=== PATIENT | male | born 1985 | race Caucasian/White ===

== ENCOUNTER 2017-12-07 04:53 | Emergency (ER) | payer OTHER ==
[2017-12-07] MEDS ORDERED: KETOROLAC 60 MG/2 ML VIAL IM STA (05:25)
--- NOTE | 2017-12-07 05:48 | XR ---
EXAM: XR Left Knee, 3 views CLINICAL HISTORY: ITS.REASON XR Reason: Pain TECHNIQUE: Three views of the left knee. COMPARISON: No relevant prior studies available. FINDINGS: Bones/joints: Unremarkable. No acute fracture. No dislocation. Soft tissues: Unremarkable. IMPRESSION: Normal left knee x-rays.
--- NOTE | 2017-12-07 05:52 | ED ---
General Adult HPI - General Chief complaint: Extremity Injury, Lower Stated complaint: [facility]-knee injury Time Seen by Provider: 12/07/17 05:06 Source: patient, RN notes reviewed, old records reviewed Mode of arrival: ambulatory Limitations: no limitations - History of Present Illness Initial comments: This is a 32-year-old male to the ER prevention of left knee pain. Patient states he has history of left patellar dislocation. Knee injury. Patient feels like similar symptoms happen prior to arrival today. Patient did finish his work and comes to the ER for evaluation of continued pain and swelling in that left knee. No other injury no specific trauma - Related Data Allergies Allergy/AdvReac Type Severity Reaction Status Date / Time No Known Allergies Allergy Verified 12/07/17 05:01 Review of Systems ROS Statement: Those systems with pertinent positive or pertinent negative responses have been documented in the HPI. ROS Other: All systems not noted in ROS Statement are negative. Past Medical History Past Medical History: No Reported History History of Any Multi-Drug Resistant Organisms: None Reported Past Surgical History: Adenoidectomy Past Psychological History: No Psychological Hx Reported Smoking Status: Current every day smoker Past Alcohol Use History: Occasional Past Drug Use History: None Reported General Exam Limitations: no limitations General appearance: alert, in no apparent distress Head exam: Present: atraumatic, normocephalic, normal inspection Eye exam: Present: normal appearance, PERRL, EOMI. Absent: scleral icterus, conjunctival injection, periorbital swelling ENT exam: Present: normal exam, mucous membranes moist Neck exam: Present: normal inspection. Absent: tenderness, meningismus, lymphadenopathy Respiratory exam: Present: normal lung sounds bilaterally. Absent: respiratory distress, wheezes, rales, rhonchi, stridor Cardiovascular Exam: Present: regular rate, normal rhythm, normal heart sounds. Absent: systolic murmur, diastolic murmur, rubs, gallop, clicks GI/Abdominal exam: Present: soft, normal bowel sounds. Absent: distended, tenderness, guarding, rebound, rigid Extremities exam: Present: normal inspection, full ROM, normal capillary refill , other (Edema, bruise). Absent: tenderness, pedal edema, joint swelling, calf tenderness Back exam: Present: normal inspection Neurological exam: Present: alert, oriented X3, CN II-XII intact Psychiatric exam: Present: normal affect, normal mood Skin exam: Present: warm, dry, intact, normal color. Absent: rash Course Vital Signs 12/07/17 12/07/17 04:58 06:10 Temperature 99 F 98.1 F Pulse Rate 100 85 Respiratory 16 18 Rate Blood Pressure 129/73 139/85 O2 Sat by Pulse 99 98 Oximetry - Reevaluation(s) Reevaluation #1: Patient is not requiring anything for pain control Medical Decision Making - Medical Decision Making 32 male the ER with unspecified knee injury. X-ray negative. Patient will follow-up with orthopedics for further evaluation and management, knee immobilizer is placed - Radiology Data Radiology results: report reviewed (X-ray left knee is negative for traumatic injury), image reviewed Disposition Clinical Impression: Left knee dislocation, Strain of left knee Disposition: HOME SELF-CARE Condition: Good Instructions: Knee Sprain (ED), Knee Pain (ED), Knee Immobilizer (ED) Referrals: Kenny Jovel MD [STAFF PHYSICIAN] - 1-2 days
[2017-12-07 06:11] VITALS: BP 139/85; PULSE 85; RESP 18; TEMP 98.1
== END 2017-12-07 06:13 | disposition home or self-care (01) ==
LOC: EC 04:53
DX: S83.005A Unspecified dislocation of left patella, initial encounter (principal); F17.200 Nicotine dependence, unspecified, uncomplicated; X58.XXXA Exposure to other specified factors, initial encounter; Y93.89 Activity, other specified; Y92.69 Other specified industrial and construction area as the place of occurrence of the external cause; Y99.0 Civilian activity done for income or pay
CPT/HCPCS: 99284; 96372; 73562; L1830; J1885

== ENCOUNTER 2017-12-21 11:02 | Observation (INO) | payer OTHER ==
[2017-12-19 09:21] VITALS: BMI 35.7
[~2017-12-21 11:02] MED LIST: DEXAMETHASONE SOD PHOSPHATE 10 MG/ML 1 ML VIAL IV ONE; MIDAZOLAM 2 MG/2 ML VIAL IV PRN; MORPHINE SULFATE 4 MG/ML SYRINGE IV PRN; ONDANSETRON 4 MG/2 ML VIAL IVP ONE; Pre Op ABX Message 1 EACH MISC MISCELLANE ONE; SCOPOLAMINE 1.5MG/72HR PATCH TRANSDERM ONE
[2017-12-21] MEDS ORDERED: LIDOCAINE 1% 20 ML VIAL (10MG/ML) FOR IV START INTRADERMA ONE (12:06)
[2017-12-21] MEDS: LACTATED RINGERS 1,000 ML IV SCH ×4 (12:06→21:39)
[2017-12-21] MEDS ORDERED: PROPOFOL 10 MG/ML 20 ML VIAL IV ONE (12:45)
[2017-12-21] MEDS ORDERED: fentaNYL (PF) 50 MCG/ML 2 ML AMP ONE (12:45)
[2017-12-21] MEDS ORDERED: LIDOCAINE 1% INJ 10MG/ML (20 ML MDV) ONE (12:45)
[2017-12-21] MEDS ORDERED: MORPHINE SULFATE 10 MG/ML SYRINGE ONE (12:45)
[2017-12-21] MEDS ORDERED: SUCCINYLCHOLINE CHLORIDE 100 MG/5 ML SYR IV ONE (12:45)
[2017-12-21] MEDS ORDERED: LACTATED RINGERS 1,000 ML IV ONE (12:45)
[2017-12-21] MEDS ORDERED: MIDAZOLAM 2 MG/2 ML VIAL ONE (12:45)
[2017-12-21] MEDS ORDERED: ceFAZolin 1,000 MG/50 ML BAG (PMX) IVPB ONE (13:06)
[2017-12-21] MEDS ORDERED: ceFAZolin 1,000 MG in SODIUM CHLORIDE 0.9% 1,000 ML IRRIGATION ONE (13:12)
[2017-12-21] MEDS ORDERED: SENNOSIDES-DOCUSATE SODIUM 1 EACH TAB PO PRN (13:50)
[2017-12-21] MEDS ORDERED: TEMAZEPAM 15 MG CAP PO PRN (13:50)
[2017-12-21] MEDS ORDERED: MORPHINE SULFATE 4 MG/ML SYRINGE IVP PRN ×3 (13:50)
[2017-12-21] MEDS ORDERED: ONDANSETRON 4 MG/2 ML VIAL IVP PRN (13:50)
[2017-12-21] MEDS ORDERED: HYDROcodone/APAP 5-325MG 1 EACH TAB PO PRN (13:50)
[2017-12-21] MEDS: MEPERIDINE 50 MG/ML SYRINGE IVP ONE ×2 (14:29→14:36)
[2017-12-21] MEDS: HYDROcodone/APAP 5-325MG 1 EACH TAB PO PRN ×2 (16:42→21:46)
[2017-12-21] MEDS: hydrOXYzine PAMOATE 25 MG CAP PO PRN ×2 (16:43→21:46)
[2017-12-21] MEDS: ceFAZolin IN SWFI 2 GM/20 ML SYRINGE IVP SCH (21:39)
[2017-12-22] MEDS: ceFAZolin IN SWFI 2 GM/20 ML SYRINGE IVP SCH (04:47)
[2017-12-22] MEDS: HYDROcodone/APAP 5-325MG 1 EACH TAB PO PRN ×2 (04:49→11:06)
[2017-12-22] MEDS: hydrOXYzine PAMOATE 25 MG CAP PO PRN (04:50)
[2017-12-22 08:50] VITALS: BP 135/85; PULSE 82; RESP 18; TEMP 97.9
--- NOTE | 2017-12-22 10:48 | P.DS ---
Providers Date of admission: 12/22/17 05:08 Expected date of discharge: 12/22/17 Attending physician: Jovon Rasheed Primary care physician: Ihsan Sinha [facility] Course: This is a pleasant 32-year-old male who presented with left vastus medialis oblique tear who failed outpatient conservative therapy. He was admitted for a left vastus medialis tendon repair. The patient tolerated the procedure well and did well postoperatively. Patient states he is ready for discharge today. His dressing has been changed this morning. Maximino wrap remains intact. He has full range of motion of the left ankle and toes without difficulty. His pain has been adequately controlled. He has 2 different knee immobilizers which he will utilize during ambulation. Condition on day of discharge stable. Patient will be discharged home. Patient was cleared preoperatively for surgery by Dr. Ihsan Sinha. Patient currently denies any nausea, vomiting, fever, or chills. Patient is eating and voiding freely without difficulty. Patient will keep incision clean and dry. He may continue with daily dressing changes. Patient may shower in 3 days if he is not experiencing any drainage from the incision site. He'll be toe-touch weightbearing on the left lower extremity. We discussed he should keep the knee immobilizer intact during ambulation. He is given prescriptions for Keflex, aspirin, Waves 5 mg/325 mg, and Senokot discharge. He should take these medications as prescribed. Assessment: Status post left vastus medialis tendon repair for oblique tear Physical Exam on day of discharge: Patient is awake, alert, and oriented 3 Vital signs stable Good chest excursion with deep inspiration and expiration Abdomen soft nontender No signs or symptoms of DVT; no calf pain Extensor hallucis longus, plantarflexion, and dorsiflexion positive sustained left lower extremity Maximino wrap dressing is clean, dry, and intact over the left knee No obvious signs of drainage on the surgical site Procedures: Left vastus medialis tendon repair Patient Condition at Discharge: Stable Plan - Discharge Summary New Discharge Prescriptions: New Cephalexin [Keflex] 500 mg PO Q8HR #15 cap Aspirin 325 mg PO BID #60 tab HYDROcodone/APAP 5-325MG [[place] 5] 1 - 2 each PO Q4-6H PRN #60 tab PRN Reason: Pain Sennosides-Docusate Sodium [Senokot-S] 2 tab PO DAILY #30 tablet No Action Ibuprofen [Motrin] 600 mg PO Q6HR PRN PRN Reason: Pain Discharge Medication List Ibuprofen [Motrin] 600 mg PO Q6HR PRN 12/19/17 [History] Aspirin 325 mg PO BID #60 tab 12/21/17 [Rx] Cephalexin [Keflex] 500 mg PO Q8HR #15 cap 12/21/17 [Rx] HYDROcodone/APAP 5-325MG [[place] 5] 1 - 2 each PO Q4-6H PRN #60 tab 12/21/17 [Rx] Sennosides-Docusate Sodium [Senokot-S] 2 tab PO DAILY #30 tablet 12/21/17 [Rx] Follow up Appointment(s)/Referral(s): Jovon Rasheed DO [Doctor of Osteopathic Medicine] - 10 Days Activity/Diet/Wound Care/Special Instructions: Keep incision clean and dry Change dressing daily May shower in 3 days if no drainage from incision Toe touch weightbearing Knee immoblizer when ambulating Follow up with Dr. Rasheed in 10 days. Call [facility] with any questions or concerns. [phone] Apply petroleum jelly to Dermabond tape approximately 1 hour before follow-up appointment, the tape will be removed in the office. Discharge Disposition: HOME SELF-CARE
--- NOTE | 2017-12-24 12:27 | OP ---
OPERATIVE REPORT DATE OF PROCEDURE: 12/22/2017. FUR TRAPPER: MITZI Kiran. PREOPERATIVE DIAGNOSIS: Rupture of the vastus medialis obliquus muscle and present contusion of the left knee. POSTOPERATIVE DIAGNOSES: 1. Rupture of the vastus medialis obliquus muscle and present contusion of the left knee. 2. Effusion and hematoma of the medial compartment of the left knee. PROCEDURE: Repair of the medialis obliquus of the left knee with evacuation of the hematoma. DESCRIPTION OF PROCEDURE: Patient was taken to the operative suite and placed in supine position. General inhalation anesthesia was performed by the Department of Anesthesiology. A Betadine prep was carried out over the left knee, mid-thigh and mid-calf. Sterile drapes applied in the usual manner. The tourniquet was inflated to 300 mmHg. A medial parapatellar incision was developed. Blunt dissection through the subcutaneous tissue was performed. The medial retinaculum was encountered and blunt dissection to the was carried out. Evacuation of the hematoma performed. A tear of the vastus medialis obliquus is noted and synovium was was performed. The ligature was identified. Closure of the multilayer #2 Ethilon suture in a running fashion. The retinaculum was in a running fashion. The subcutaneous tissue approximated with 2-0 Vicryl suture. The skin was approximated with 3-0 Quill suture in a subcuticular fashion. The wound was sealed with Dermabond. Pneumatic tourniquet was deflated and sterile pres sire dressing was applied. Patient placed in a knee mobilizer. The patient was transferred to recovery room in satisfactory postop condition. GROSS PATHOLOGY: There was evidence of a tear of the vastus radialis obliquus muscle along the attachment of the patella and superior pole to the excision. . No other lesions are present, other than a large hematoma in subcutaneous tissue. MMODL / IJN: [id number] /
== END 2017-12-22 11:49 | disposition home or self-care (01) ==
LOC: OR 11:02 → 3SUR 13:42 → OR 12-22 05:08
PROVIDERS: ADMIT Orthopaedic Surgery; ATTEND Orthopaedic Surgery
DX: S76.112A Strain of left quadriceps muscle, fascia and tendon, initial encounter (principal); S80.02XA Contusion of left knee, initial encounter; F17.200 Nicotine dependence, unspecified, uncomplicated; X58.XXXA Exposure to other specified factors, initial encounter; Y99.0 Civilian activity done for income or pay; Z82.49 Family history of ischemic heart disease and other diseases of the circulatory system
CPT/HCPCS: 27385; 27301; G0378; J2250; J2270 ×2; J1100; J2175; J2405; J0690 ×4; J2001; J3010; J0330; J2704

== ENCOUNTER 2018-03-03 14:09 | Emergency (ER) | payer OTHER ==
[2018-03-03 14:27] VITALS: BP 132/81; PULSE 85; RESP 18; TEMP 98.1
--- NOTE | 2018-03-03 14:45 | ED ---
Lower Extremity Injury HPI - General Chief Complaint: Extremity Injury, Lower Stated Complaint: knee injury-[facility] Time Seen by Provider: 03/03/18 14:32 Source: patient Mode of arrival: ambulatory Limitations: no limitations - History of Present Illness Initial Comments: This 32-year-old white male presents with a complaint of some left knee pain and swelling. He states that he had surgery on his left knee approximately [address] Rasheed[address] He had been healing well. Early this morning he went to stand up to get out of bed and his knee gave out and he fell to the floor. He did twist his knee at that time. He has had increased swelling and increased pain since that time. He states that this surgery had been going well until now. He was off of his knee brace and it was not causing him any further pain and has not been on the pain medications. He denies any other complaints or modifying factors. He is able to ambulate okay as long as he is wearing his knee immobilizer. - Related Data Home Medications Medication Instructions Recorded Confirmed Ibuprofen [Motrin] 600 mg PO Q6HR PRN 12/19/17 12/22/17 Previous Rx's Medication Instructions Recorded Cephalexin [Keflex] 500 mg PO Q8HR #15 cap 12/21/17 HYDROcodone/APAP 5-325MG [[place] 5] 1 - 2 each PO Q4-6H PRN #60 tab 12/21/17 Aspirin 325 mg PO DAILY #60 tab 12/22/17 Sennosides-Docusate Sodium 1 tab PO BID PRN #60 tablet 12/22/17 [Senokot-S] Ibuprofen [Motrin] 800 mg PO Q8H PRN #20 tab 03/03/18 Allergies Allergy/AdvReac Type Severity Reaction Status Date / Time No Known Allergies Allergy Verified 03/03/18 14:27 Review of Systems ROS Statement: Those systems with pertinent positive or pertinent negative responses have been documented in the HPI. ROS Other: All systems not noted in ROS Statement are negative. Past Medical History Past Medical History: No Reported History History of Any Multi-Drug Resistant Organisms: None Reported Past Surgical History: Appendectomy, Orthopedic Surgery Additional Past Surgical History / Comment(s): left knee Past Anesthesia/Blood Transfusion Reactions: No Reported Reaction Past Psychological History: No Psychological Hx Reported Smoking Status: Current every day smoker Past Alcohol Use History: Occasional Past Drug Use History: None Reported - Past Family History Mother Family Medical History: No Reported History General Exam Limitations: no limitations Extremities exam: Present: tenderness (There is tenderness noted to the left knee more so on the medial aspect and also inferiorly over the proximal tibia region. There is some moderate to significant swelling noted on the medial aspect of the right knee. There is a anterior surgical scar noted in a vertical fashion. The patient has significant pain with any attempts at flexion of the left knee. Range of motion is limited due to his pain.), normal capillary refill, joint swelling. Absent: pedal edema, calf tenderness Neurological exam: Present: alert, oriented X3 Psychiatric exam: Present: normal affect, normal mood Skin exam: Present: intact. Absent: warm, rash Course Vital Signs 03/03/18 14:22 Temperature 98.1 F Pulse Rate 85 Respiratory 18 Rate Blood Pressure 132/81 O2 Sat by Pulse 100 Oximetry Medical Decision Making - Medical Decision Making The patient was seen and examined. An x-ray was taken of the left knee as well as left tibia and fibula. The x-ray does not show any acute bony process. It does show the soft tissue swelling medially as well as a joint effusion. It is felt that he likely does have another knee strain or cartilaginous injury. He does have a knee immobilizer that he brought with him. This is reapplied. It is felt as though he would need close follow-up with orthopedics and may benefit from another MRI scan. He is agreeable with this plan. He is instructed to utilize Motrin as well as ice. Disposition Clinical Impression: Left knee sprain Disposition: HOME SELF-CARE Condition: Good Instructions: Knee Sprain (ED) Additional Instructions: Please continue with their knee immobilizer. Prescriptions: Ibuprofen [Motrin] 800 mg PO Q8H PRN #20 tab PRN Reason: Pain Is patient prescribed a controlled substance at d/c from ED?: No Referrals: Ihsan Sinha MD [Primary Care Provider] - 1-2 days Jovon Rasheed DO [Doctor of Osteopathic Medicine] - 1-2 days
--- NOTE | 2018-03-03 15:27 | XR ---
EXAMINATION TYPE: XR knee complete 3 views LT, XR tibia fibula 2 views LT DATE OF EXAM: 03/03/2018 COMPARISON: Left knee 12/07/2017 HISTORY: 32-year-old male with knee pain and swelling, knee gave out, surgery with blood clot removal on 12/21/2017 FINDINGS: Left knee: The moderate to large joint effusion with prominent medial soft tissue swelling. Degenerative changes in the patellofemoral compartment. No acute fracture or dislocation. Left tibia/fibula: Mild degenerative spurring anterior tibiotalar joint. Small plantar calcaneal spur. No acute fracture identified. IMPRESSION: 1. Prominent medial soft tissue swelling. Correlate with physical exam findings. Some considerations include soft tissue injury/contusion, hematoma, and mass. 2. Underlying moderate to large knee joint effusion. Degenerative change in the patellofemoral compar tment. MRI can be performed to assess for internal derangement as indicated. 3. Otherwise, left knee and tibia/fibula without acute osseous abnormality seen.
== END 2018-03-03 16:01 | disposition home or self-care (01) ==
LOC: EC 14:09
DX: S83.92XA Sprain of unspecified site of left knee, initial encounter (principal); F17.200 Nicotine dependence, unspecified, uncomplicated; Z98.890 Other specified postprocedural states; W19.XXXA Unspecified fall, initial encounter; X50.1XXA Overexertion from prolonged static or awkward postures, initial encounter; Y92.009 Unspecified place in unspecified non-institutional (private) residence as the place of occurrence of the external cause
CPT/HCPCS: 73590; 73562; 99283; L1830

== ENCOUNTER 2019-10-04 16:39 | Emergency (ER) | payer OTHER ==
[2019-10-04] MEDS ORDERED: KETOROLAC 30 MG/ML 1 ML VIAL IVP STA (16:58)
[2019-10-04] MEDS ORDERED: ONDANSETRON 4 MG/2 ML VIAL IVP STA (16:58)
[2019-10-04] MEDS ORDERED: SODIUM CHLORIDE 0.9% 1,000 ML IV STA (16:58)
--- NOTE | 2019-10-04 17:31 | ED ---
Abdominal Pain HPI - General Chief Complaint: Abdominal Pain Stated Complaint: Abdominal Pain Time Seen by Provider: 10/04/19 16:48 Source: patient Mode of arrival: ambulatory Limitations: no limitations - History of Present Illness Initial Comments: Patient is a 33-year-old male presenting to emergency Department with complaints of left-sided abdominal pain that has been increasing over the past week. Patient states he does have a history of left kidney stone approximately one year ago. Patient states this feels similar although more painful in nature. Patient describes the pain as sharp and intermittent. Patient admits to mild nausea, no vomiting. Denies fever, chills, chest pain, shortness of breath. Patient denies hematuria. Patient has not taken any medicine yet. Patient has history of appendectomy, no other abdominal surgeries. Patient has had regular bowel movements. Patient has no other complaints at this time. Upon arrival to the ER, vital signs are stable. - Related Data Home Medications Medication Instructions Recorded Confirmed Ibuprofen [Motrin] 600 mg PO Q6HR PRN 12/19/17 12/22/17 Previous Rx's Medication Instructions Recorded Cephalexin [Keflex] 500 mg PO Q8HR #15 cap 12/21/17 HYDROcodone/APAP 5-325MG [[place] 5] 1 - 2 each PO Q4-6H PRN #60 tab 12/21/17 Aspirin 325 mg PO DAILY #60 tab 12/22/17 Sennosides-Docusate Sodium 1 tab PO BID PRN #60 tablet 12/22/17 [Senokot-S] Ibuprofen [Motrin] 800 mg PO Q8H PRN #20 tab 03/03/18 Ketorolac [Toradol] 10 mg PO Q8HR #10 tab 10/04/19 Ondansetron Odt [Zofran Odt] 4 mg PO Q8HR PRN #10 tab 10/04/19 Tamsulosin [Flomax] 0.4 mg PO DAILY #7 cap 10/04/19 Allergies Allergy/AdvReac Type Severity Reaction Status Date / Time No Known Allergies Allergy Verified 10/04/19 16:45 Review of Systems ROS Statement: Those systems with pertinent positive or pertinent negative responses have been documented in the HPI. ROS Other: All systems not noted in ROS Statement are negative. Past Medical History Past Medical History: No Reported History History of Any Multi-Drug Resistant Organisms: None Reported Past Surgical History: Appendectomy, Orthopedic Surgery Additional Past Surgical History / Comment(s): left knee Past Anesthesia/Blood Transfusion Reactions: No Reported Reaction Past Psychological History: No Psychological Hx Reported Smoking Status: Current every day smoker Past Alcohol Use History: Occasional Past Drug Use History: None Reported - Past Family History Mother Family Medical History: No Reported History General Exam - General Exam Comments Initial Comments: GENERAL: Well-appearing, well-nourished and in no acute distress, though looks uncomfortable. HEAD: Atraumatic, normocephalic. EYES: Pupils equal round and reactive to light, extraocular movements intact, sclera anicteric, conjunctiva are normal. ENT: TMs normal, nares patent, oropharynx clear without exudates. Moist mucous membranes. NECK: Normal range of motion, supple without lymphadenopathy or JVD. LUNGS: Breath sounds clear to auscultation bilaterally and equal. No wheezes rales or rhonchi. HEART: Regular rate and rhythm without murmurs, rubs or gallops. ABDOMEN: Tender to palpation left side of abdomen as well as left flank tenderness. Soft, normoactive bowel sounds. No guarding, no rebound. No masses appreciated. : Deferred EXTREMITIES: Normal range of motion, no pitting or edema. No clubbing or cyanosis. NEUROLOGICAL: Normal speech, normal gait. PSYCH: Normal mood, normal affect. SKIN: Warm, Dry, normal turgor, no rashes or lesions noted. Limitations: no limitations Course Vital Signs 10/04/19 10/04/19 10/04/19 16:42 17:03 19:29 Temperature 98.1 F 97.7 F 98.2 F Pulse Rate 101 H 92 83 Respiratory 20 16 18 Rate Blood Pressure 111/68 116/69 117/77 O2 Sat by Pulse 99 99 100 Oximetry Medical Decision Making - Medical Decision Making Patient is a 33-year-old male presenting with left-sided abdominal pain as well as left flank pain has been increasing over the past week. Vital signs are stable. Lab work shows no acute abnormalities. Urine is normal. CT of the abdomen shows a distal left ureter stone 6 mm in size. No hydronephrosis. Patient was given pain control, fluids, Zofran and reports improvement of symptoms. I discussed these findings with the patient. Patient is stable for discharge at this time. Patient will be discharged with Zofran, Flomax, Toradol for relief. Patient also given referral for urologist. Patient is in agreement with this plan of care. Return parameters were discussed with the patient he verbalizes understanding. Case discussed with Dr. Krishna. - Lab Data Result diagrams: 10/04/19 17:03 10/04/19 17:03 Lab Results 10/04/19 10/04/19 10/04/19 Range/Units 17:03 17:03 17:13 WBC 10.0 (3.8-10.6) k/uL RBC 5.22 (4.30-5.90) m/uL Hgb 16.0 (13.0-17.5) gm/dL Hct 47.5 (39.0-53.0) % MCV 90.9 (80.0-100.0) fL MCH 30.7 (25.0-35.0) pg MCHC 33.8 (31.0-37.0) g/dL RDW 12.3 (11.5-15.5) % Plt Count 275 (150-450) k/uL Neutrophils % 77 % Lymphocytes % 14 % Monocytes % 5 % Eosinophils % 2 % Basophils % 0 % Neutrophils # 7.7 (1.3-7.7) k/uL Lymphocytes # 1.4 (1.0-4.8) k/uL Monocytes # 0.5 (0-1.0) k/uL Eosinophils # 0.2 (0-0.7) k/uL Basophils # 0.0 (0-0.2) k/uL Sodium 140 (137-145) mmol/L Potassium 4.6 (3.5-5.1) mmol/L Chloride 105 (98-107) mmol/L Carbon Dioxide 31 H (22-30) mmol/L Anion Gap 4 mmol/L BUN 16 (9-20) mg/dL Creatinine 0.78 (0.66-1.25) mg/dL Est GFR (CKD-EPI)AfAm >90 (>60 ml/min/1.73 sqM) Est GFR (CKD-EPI)NonAf >90 (>60 ml/min/1.73 sqM) Glucose 83 (74-99) mg/dL Calcium 9.3 (8.4-10.2) mg/dL Total Bilirubin 0.6 (0.2-1.3) mg/dL AST 24 (17-59) U/L ALT 19 (4-49) U/L Alkaline Phosphatase 52 (38-126) U/L Total Protein 6.6 (6.3-8.2) g/dL Albumin 4.0 (3.5-5.0) g/dL Amylase <30 L (30-110) U/L Lipase 80 (23-300) U/L Urine Color Yellow Urine Appearance Cloudy (Clear) Urine pH 7.0 (5.0-8.0) Ur Specific [place] 1.024 (1.001-1.035) Urine Protein Negative (Negative) Urine Glucose (UA) Negative (Negative) Urine Ketones Negative (Negative) Urine Blood Negative (Negative) Urine Nitrite Negative (Negative) Urine Bilirubin Negative (Negative) Urine Urobilinogen <2.0 (<2.0) mg/dL Ur Leukocyte Esterase Negative (Negative) Urine RBC 1 (0-5) /hpf Urine WBC 2 (0-5) /hpf Amorphous Sediment Few H (None) /hpf Urine Bacteria Rare H (None) /hpf Urine Mucus Occasional H (None) /hpf Disposition Clinical Impression: Renal calculus, left, Renal colic on left side Disposition: HOME SELF-CARE Condition: Stable Instructions (If sedation given, give patient instructions): Kidney Stones (ED) Additional Instructions: Please return to the Emergency Department if symptoms worsen or any other concerns. Take medications as prescribed. Follow up with urologist. Prescriptions: Tamsulosin [Flomax] 0.4 mg PO DAILY #7 cap Ketorolac [Toradol] 10 mg PO Q8HR #10 tab Ondansetron Odt [Zofran Odt] 4 mg PO Q8HR PRN #10 tab PRN Reason: Nausea Is patient prescribed a controlled substance at d/c from ED?: No Referrals: Ihsan Sinha MD [Primary Care Provider] - 1-2 days Obed Rowland MD [STAFF PHYSICIAN] - 1-2 days
[2019-10-04 17:32] LABS: Basophils % (A) 0 %; Eosinophils # (A) 0.2 k/uL (0-0.7); Eosinophils % (A) 2 %; HCT 47.5 % (39.0-53.0); Lymphocytes # (A) 1.4 k/uL (1.0-4.8); Lymphocytes % (A) 14 %; MCH 30.7 pg (25.0-35.0); MCHC 33.8 g/dL (31.0-37.0); MCV 90.9 fL (80.0-100.0); Mean Platelet Volume 7.2; Monocytes # (A) 0.5 k/uL (0-1.0); Monocytes % (A) 5 %; Neutrophils # (A) 7.7 k/uL (1.3-7.7); Neutrophils % (A) 77 %; Platelet Count 275 k/uL (150-450); RBC 5.22 m/uL (4.30-5.90); RDW 12.3 % (11.5-15.5)
[2019-10-04 17:45] LABS: ALT 19 U/L (4-49); AST 24 U/L (17-59); African American GFR (CKD) >90 (>60 ml/min/1.73 sqM); Alkaline Phosphatase 52 U/L (38-126); Amylase <30 U/L (30-110); Anion Gap 4 mmol/L; Blood Urea Nitrogen 16 mg/dL (9-20); Calcium 9.3 mg/dL (8.4-10.2); Carbon Dioxide 31 mmol/L (22-30); Chloride 105 mmol/L (98-107); Glucose 83 mg/dL (74-99); Non-African American GFR(CKD) >90 (>60 ml/min/1.73 sqM); Potassium 4.6 mmol/L (3.5-5.1); Sodium 140 mmol/L (137-145); Total Bilirubin 0.6 mg/dL (0.2-1.3); Total Protein 6.6 g/dL (6.3-8.2)
[2019-10-04 17:54] LABS: Amorphous Sediment,Urine Few /hpf; Appearance,Urine Cloudy (Clear); Bacteria,Urine Rare /hpf; Bilirubin,Urine Negative (Negative); Blood,Urine Negative (Negative); Color,Urine Yellow; Glucose,Urine (UA) Negative (Negative); Ketones,Urine Negative (Negative); Leukocyte Esterase,Urine Negative (Negative); Mucus,Urine Occasional /hpf; Nitrite,Urine Negative (Negative); Protein,Urine Negative (Negative); RBC,Urine 1 /hpf (0-5); Specific Gravity,Urine 1.024 (1.001-1.035); Urobilinogen,Urine <2.0 mg/dL (<2.0); WBC,Urine 2 /hpf (0-5)
--- NOTE | 2019-10-04 18:32 | CT ---
EXAMINATION TYPE: CT abdomen pelvis wo con DATE OF EXAM: 10/04/2019 COMPARISON: HISTORY: Left flank pain. CT DLP: 1225.4 mGycm Automated exposure control for dose reduction was used. TECHNIQUE: Helical acquisition of images from the lung bases through the pelvis. FINDINGS: Lack of intravenous contrast may compromise sensitivity. LUNG BASES: No significant abnormality is appreciated. AORTA: No significant abnormality is appreciated. LIVER/GB: No significant abnormality is appreciated. Gallbladder is contracted. PANCREAS: No significant abnormality is seen. SPLEEN: No significant abnormality is seen. ADRENALS: No significant abnormality is seen. KIDNEYS: No definite hydronephrosis. Difficult to exclude distal left ureteral calculus measuring 6 m m. Calcifications within the pelvis may be phleboliths. REPRODUCTIVE ORGANS: No significant abnormality is seen. URINARY BLADDER: No significant abnormality is seen. BOWEL: No significant abnormality is seen. FREE AIR: No Free Air is visible. ASCITES: None visible. PELVIC ADENOPATHY: None visualized. RETROPERITONEAL ADENOPATHY: No Retroperitoneal Adenopathy visible. OSSEOUS STRUCTURES: No significant abnormality is seen. IMPRESSION: DISTAL LEFT URETER IS NOT WELL DIFFERENTIATED FROM ADJACENT STRUCTURES, THERE ARE INDETERMINATE CALCI FICATIONS WITHIN THE PELVIS, DIFFICULT TO EXCLUDE A DISTAL LEFT URETERAL CALCULUS.
[2019-10-04 19:32] VITALS: BP 117/77; PULSE 83; RESP 18; TEMP 98.2
== END 2019-10-04 19:32 | disposition home or self-care (01) ==
LOC: EC 16:39
DX: N20.2 Calculus of kidney with calculus of ureter (principal); F17.200 Nicotine dependence, unspecified, uncomplicated; Z90.49 Acquired absence of other specified parts of digestive tract
CPT/HCPCS: 36415; 80053; 82150; 83690; 85025; 81001; 74176; 99284; 96374; 96361 ×2; J2405; J1885

== ENCOUNTER 2019-10-23 10:49 | Emergency (ER) | payer OTHER ==
[2019-10-23] MEDS ORDERED: ONDANSETRON 4 MG/2 ML VIAL IVP STA (11:26)
[2019-10-23] MEDS ORDERED: KETOROLAC 30 MG/ML 1 ML VIAL IVP STA (11:26)
[2019-10-23 11:46] LABS: Basophils # (A) 0.1 k/uL (0-0.2); Basophils % (A) 1 %; Eosinophils # (A) 0.1 k/uL (0-0.7); Eosinophils % (A) 1 %; HCT 47.2 % (39.0-53.0); Lymphocytes % (A) 7 %; MCH 30.6 pg (25.0-35.0); MCHC 33.9 g/dL (31.0-37.0); MCV 90.4 fL (80.0-100.0); Mean Platelet Volume 7.2; Monocytes % (A) 7 %; Neutrophils # (A) 11.9 k/uL (1.3-7.7); Neutrophils % (A) 83 %; Platelet Count 248 k/uL (150-450); RBC 5.22 m/uL (4.30-5.90); RDW 12.1 % (11.5-15.5); WBC 14.3 k/uL (3.8-10.6)
[2019-10-23 11:57] LABS: ALT 18 U/L (4-49); AST 25 U/L (17-59); African American GFR (CKD) >90 (>60 ml/min/1.73 sqM); Albumin 4.2 g/dL (3.5-5.0); Alkaline Phosphatase 60 U/L (38-126); Amylase <30 U/L (30-110); Anion Gap 8 mmol/L; Blood Urea Nitrogen 14 mg/dL (9-20); Calcium 9.5 mg/dL (8.4-10.2); Carbon Dioxide 26 mmol/L (22-30); Chloride 102 mmol/L (98-107); Glucose 97 mg/dL (74-99); Non-African American GFR(CKD) >90 (>60 ml/min/1.73 sqM); Potassium 3.6 mmol/L (3.5-5.1); Sodium 136 mmol/L (137-145); Total Bilirubin 0.9 mg/dL (0.2-1.3); Total Protein 6.8 g/dL (6.3-8.2)
[2019-10-23 12:21] LABS: Appearance,Urine Cloudy (Clear); Bilirubin,Urine Negative (Negative); Blood,Urine Moderate (Negative); Calcium Oxalate Crystals,Urine Occasional /hpf; Color,Urine Light Red; Glucose,Urine (UA) Negative (Negative); Ketones,Urine 2+ (Negative); Leukocyte Esterase,Urine Negative (Negative); Mucus,Urine Many /hpf; Nitrite,Urine Negative (Negative); Protein,Urine 2+ (Negative); RBC,Urine >182 /hpf (0-5); Specific Gravity,Urine 1.026 (1.001-1.035); Squamous Epithelial Cell,Urine 1 /hpf (0-4); WBC,Urine 4 /hpf (0-5)
--- NOTE | 2019-10-23 12:24 | XR ---
EXAMINATION TYPE: XR KUB DATE OF EXAM: 10/23/2019 12:14 PM CLINICAL HISTORY: Abdominal pain and nausea TECHNIQUE: Single upright image of the abdomen is obtained. COMPARISON: None. FINDINGS: No pneumoperitoneum is seen. No abnormal calcifications in the abdomen. Solitary probable p hleboliths within the pelvis. No dilated large or small bowel.. The lung bases are clear and the osse ous structures are intact. IMPRESSION: Nonobstructive bowel gas pattern.
[2019-10-23] MEDS ORDERED: SODIUM CHLORIDE 0.9% 1,000 ML IV STA (12:29)
--- NOTE | 2019-10-23 12:51 | ED ---
General Adult HPI - General Chief complaint: Abdominal Pain Stated complaint: Kidney stone Time Seen by Provider: 10/23/19 11:17 Source: patient, RN notes reviewed Mode of arrival: ambulatory Limitations: no limitations - History of Present Illness Initial comments: 34-year-old male presents to the emergency department for a chief complaint of left lower quadrant pain. Patient states he has had a knee stone since September. States that the pain was seeming to get better but then worsened again today. 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 Denies any difficulty urinating. Denies fevers or chills.Patient has no other complaints at this time including shortness of breath, chest pain, nausea or vomiting, headache, or visual changes. - Related Data Home Medications Medication Instructions Recorded Confirmed Ibuprofen [Motrin] 600 mg PO Q6HR PRN 12/19/17 12/22/17 Previous Rx's Medication Instructions Recorded Cephalexin [Keflex] 500 mg PO Q8HR #15 cap 12/21/17 HYDROcodone/APAP 5-325MG [[place] 5] 1 - 2 each PO Q4-6H PRN #60 tab 12/21/17 Aspirin 325 mg PO DAILY #60 tab 12/22/17 Sennosides-Docusate Sodium 1 tab PO BID PRN #60 tablet 12/22/17 [Senokot-S] Ibuprofen [Motrin] 800 mg PO Q8H PRN #20 tab 03/03/18 Ketorolac [Toradol] 10 mg PO Q8HR #10 tab 10/04/19 Ondansetron Odt [Zofran Odt] 4 mg PO Q8HR PRN #10 tab 10/04/19 Tamsulosin [Flomax] 0.4 mg PO DAILY #7 cap 10/04/19 Ibuprofen [Motrin] 600 mg PO Q8HR PRN #20 tab 10/23/19 Ondansetron [Zofran ODT] 4 mg PO Q8HR PRN #15 tab 10/23/19 Tamsulosin [Flomax] 0.4 mg PO DAILY #14 cap 10/23/19 Allergies Allergy/AdvReac Type Severity Reaction Status Date / Time No Known Allergies Allergy Verified 10/23/19 10:56 Review of Systems ROS Statement: Those systems with pertinent positive or pertinent negative responses have been documented in the HPI. ROS Other: All systems not noted in ROS Statement are negative. Past Medical History Past Medical History: No Reported History History of Any Multi-Drug Resistant Organisms: None Reported Past Surgical History: Appendectomy, Orthopedic Surgery Additional Past Surgical History / Comment(s): left knee Past Anesthesia/Blood Transfusion Reactions: No Reported Reaction Past Psychological History: No Psychological Hx Reported Smoking Status: Current every day smoker Past Alcohol Use History: Occasional Past Drug Use History: None Reported - Past Family History Mother Family Medical History: No Reported History General Exam Limitations: no limitations General appearance: alert, in no apparent distress Head exam: Present: atraumatic, normocephalic, normal inspection Eye exam: Present: normal appearance, PERRL, EOMI. Absent: scleral icterus, conjunctival injection, periorbital swelling ENT exam: Present: normal exam, mucous membranes moist Neck exam: Present: normal inspection, full ROM. Absent: tenderness, meningismus, lymphadenopathy Respiratory exam: Present: normal lung sounds bilaterally. Absent: respiratory distress, wheezes, rales, rhonchi, stridor Cardiovascular Exam: Present: regular rate, normal rhythm, normal heart sounds. Absent: systolic murmur, diastolic murmur, rubs, gallop, clicks GI/Abdominal exam: Present: soft, tenderness (Minimal left lower quadrant tenderness), normal bowel sounds. Absent: distended, guarding, rebound, rigid Back exam: Absent: CVA tenderness (R), CVA tenderness (L) Neurological exam: Present: alert Course Vital Signs 10/23/19 10:54 Temperature 97.3 F L Pulse Rate 97 Respiratory 22 Rate Blood Pressure 161/89 O2 Sat by Pulse 99 Oximetry Medical Decision Making - Medical Decision Making 34-year-old male presents for left lower quadrant pain. Patient was diagnosed with a kidney stone on October 04. CT was read as a possible 6 mm stone in the left distal ureter. Patient did have improvement at first however had worsening pain again today. He has not followed up with urology nor picked up any of his prescriptions. CBC shows mild acidosis likely reactive in nature. CMP unremarkable. Kidney function is within normal limits. Urinalysis does show greater than 182 red blood cells which is likely secondary to the stone. 2+ ketones, patient given fluids. X-ray shows a nonobstructive bowel gas pattern. CT was not repeated as this was done a couple weeks ago. Pain improved and is now at a 1 out of 10 with Toradol. I stressed the importance of following up with urology as soon as possible given that this stone will likely not pass on its own. Patient states he was aware of this and will do so. He will return here if he has any worsening symptoms.I discussed this case with attending Dr. Morillo who agrees with this assessment and treatment plan. - Lab Data Result diagrams: 10/23/19 11:08 10/23/19 11:08 Lab Results 10/23/19 10/23/19 10/23/19 Range/Units 11:08 11:08 11:41 WBC 14.3 H (3.8-10.6) k/uL RBC 5.22 (4.30-5.90) m/uL Hgb 16.0 (13.0-17.5) gm/dL Hct 47.2 (39.0-53.0) % MCV 90.4 (80.0-100.0) fL MCH 30.6 (25.0-35.0) pg MCHC 33.9 (31.0-37.0) g/dL RDW 12.1 (11.5-15.5) % Plt Count 248 (150-450) k/uL Neutrophils % 83 % Lymphocytes % 7 % Monocytes % 7 % Eosinophils % 1 % Basophils % 1 % Neutrophils # 11.9 H (1.3-7.7) k/uL Lymphocytes # 1.0 (1.0-4.8) k/uL Monocytes # 1.0 (0-1.0) k/uL Eosinophils # 0.1 (0-0.7) k/uL Basophils # 0.1 (0-0.2) k/uL Sodium 136 L (137-145) mmol/L Potassium 3.6 (3.5-5.1) mmol/L Chloride 102 (98-107) mmol/L Carbon Dioxide 26 (22-30) mmol/L Anion Gap 8 mmol/L BUN 14 (9-20) mg/dL Creatinine 1.07 (0.66-1.25) mg/dL Est GFR (CKD-EPI)AfAm >90 (>60 ml/min/1.73 sqM) Est GFR (CKD-EPI)NonAf >90 (>60 ml/min/1.73 sqM) Glucose 97 (74-99) mg/dL Calcium 9.5 (8.4-10.2) mg/dL Total Bilirubin 0.9 (0.2-1.3) mg/dL AST 25 (17-59) U/L ALT 18 (4-49) U/L Alkaline Phosphatase 60 (38-126) U/L Total Protein 6.8 (6.3-8.2) g/dL Albumin 4.2 (3.5-5.0) g/dL Amylase <30 L (30-110) U/L Lipase 55 (23-300) U/L Urine Color Light Red Urine Appearance Cloudy (Clear) Urine pH 6.0 (5.0-8.0) Ur Specific [place] 1.026 (1.001-1.035) Urine Protein 2+ H (Negative) Urine Glucose (UA) Negative (Negative) Urine Ketones 2+ H (Negative) Urine Blood Moderate H (Negative) Urine Nitrite Negative (Negative) Urine Bilirubin Negative (Negative) Urine Urobilinogen 3.0 (<2.0) mg/dL Ur Leukocyte Esterase Negative (Negative) Urine RBC >182 H (0-5) /hpf Urine WBC 4 (0-5) /hpf Ur Squamous Epith Cells 1 (0-4) /hpf Calcium Oxalate Crystal Occasional H (None) /hpf Urine Mucus Many H (None) /hpf Disposition Clinical Impression: Renal calculus, left, Hematuria Disposition: HOME SELF-CARE Condition: Good Instructions (If sedation given, give patient instructions): Kidney Stones (ED) Additional Instructions: Please take medications as directed. Follow-up with urology as soon as possible. As discussed, you may not pass this stone on your own. Return to the emergency department if you have any worsening symptoms. Prescriptions: Tamsulosin [Flomax] 0.4 mg PO DAILY #14 cap Ibuprofen [Motrin] 600 mg PO Q8HR PRN #20 tab PRN Reason: Pain Ondansetron [Zofran ODT] 4 mg PO Q8HR PRN #15 tab PRN Reason: Nausea Is patient prescribed a controlled substance at d/c from ED?: No Referrals: Ihsan Sinha MD [Primary Care Provider] - 1-2 days Obed Rowland MD [STAFF PHYSICIAN] - 1-2 days Time of Disposition: 12:50
[2019-10-23 13:17] VITALS: BP 147/82; PULSE 85; RESP 18; TEMP 98
== END 2019-10-23 13:16 | disposition home or self-care (01) ==
LOC: EC 10:49
DX: N20.0 Calculus of kidney (principal); E87.2 Acidosis; F17.200 Nicotine dependence, unspecified, uncomplicated; Z90.49 Acquired absence of other specified parts of digestive tract
CPT/HCPCS: 36415; 80053; 82150; 83690; 85025; 81001; 74018; 99284; 96374; 96375; 96361; J2405; J1885

== ENCOUNTER 2020-05-09 05:07 | Emergency (ER) | payer OTHER ==
[2020-05-09 05:19] VITALS: BP 126/75; PULSE 100; RESP 16; TEMP 98.7
[2020-05-09] MEDS ORDERED: PENICILLIN VK 500MG STARTER 4 TAB BTL PO STA (05:29)
--- NOTE | 2020-05-09 05:29 | ED ---
ENT HPI - General Chief complaint: ENT Stated complaint: ENT Time Seen by Provider: 05/09/20 05:15 Source: patient Mode of arrival: ambulatory Limitations: no limitations - History of Present Illness Initial comments: This patient is 34-year-old man who presents to be evaluated for sore throat. He states that the symptoms had started Sunday and have become worse since that time. He describes a burning and aching that is constant but is worse when he tries to swallow things. The patient has not noted relieving factors. There is no difficulty with breathing, speech or swallowing. Patient has felt hot but has not noted a fever. No cough. No rash or abdominal pain. MD complaint: sore throat Onset/Timin -: days(s) Location: throat Severity: moderate Quality: burning, aching Consistency: constant Improves with: none Worsens with: swallowing Associated Symptoms: sore throat - Related Data Home Medications Medication Instructions Recorded Confirmed Ibuprofen [Motrin] 600 mg PO Q6HR PRN 12/19/17 12/22/17 Previous Rx's Medication Instructions Recorded Cephalexin [Keflex] 500 mg PO Q8HR #15 cap 12/21/17 HYDROcodone/APAP 5-325MG [[place] 5] 1 - 2 each PO Q4-6H PRN #60 tab 12/21/17 Aspirin 325 mg PO DAILY #60 tab 12/22/17 Sennosides-Docusate Sodium 1 tab PO BID PRN #60 tablet 12/22/17 [Senokot-S] Ibuprofen [Motrin] 800 mg PO Q8H PRN #20 tab 03/03/18 Ketorolac [Toradol] 10 mg PO Q8HR #10 tab 10/04/19 Ondansetron Odt [Zofran Odt] 4 mg PO Q8HR PRN #10 tab 10/04/19 Tamsulosin [Flomax] 0.4 mg PO DAILY #7 cap 10/04/19 Ibuprofen [Motrin] 600 mg PO Q8HR PRN #20 tab 10/23/19 Ondansetron [Zofran ODT] 4 mg PO Q8HR PRN #15 tab 10/23/19 Tamsulosin [Flomax] 0.4 mg PO DAILY #14 cap 10/23/19 Penicillin V Potassium [Pen Vee K] 500 mg PO QID #40 tablet 05/09/20 Allergies Allergy/AdvReac Type Severity Reaction Status Date / Time No Known Allergies Allergy Verified 05/09/20 05:19 Review of Systems ROS Statement: Those systems with pertinent positive or pertinent negative responses have been documented in the HPI. ROS Other: All systems not noted in ROS Statement are negative. Constitutional: Denies: fever, chills ENT: Reports: throat pain. Denies: ear pain, congestion Respiratory: Denies: cough, dyspnea Gastrointestinal: Denies: abdominal pain Skin: Denies: rash Past Medical History Past Medical History: No Reported History History of Any Multi-Drug Resistant Organisms: None Reported Past Surgical History: Appendectomy, Orthopedic Surgery Additional Past Surgical History / Comment(s): left knee Past Anesthesia/Blood Transfusion Reactions: No Reported Reaction Past Psychological History: No Psychological Hx Reported Smoking Status: Current every day smoker Past Alcohol Use History: Occasional Past Drug Use History: None Reported - Past Family History Mother Family Medical History: No Reported History General Exam Limitations: no limitations General appearance: alert, in no apparent distress Head exam: Present: atraumatic, normocephalic Eye exam: Present: normal appearance. Absent: scleral icterus, conjunctival injection ENT exam: Present: mucous membranes moist, other (The patient has erythema to the pharynx. The uvula is midline. No evidence of peritonsillar abscess.). Absent: normal oropharynx Neck exam: Present: normal inspection, full ROM, lymphadenopathy. Absent: menin gismus GI/Abdominal exam: Present: soft. Absent: tenderness Neurological exam: Present: alert Skin exam: Present: warm, dry, intact, normal color. Absent: rash Course Vital Signs 05/09/20 05:16 Temperature 98.7 F Pulse Rate 100 Respiratory 16 Rate Blood Pressure 126/75 O2 Sat by Pulse 97 Oximetry Medical Decision Making - Medical Decision Making This patient is a 34-year-old man presenting with acute pharyngitis. Clinically the patient strongly consistent with strep pharyngitis. Will start antibiotic therapy here and have patient with close follow-up to ensure that symptoms are improving, discussed return criteria. Disposition Clinical Impression: Strep pharyngitis Disposition: HOME SELF-CARE Condition: Good Instructions (If sedation given, give patient instructions): Pharyngitis (ED) Prescriptions: Penicillin V Potassium [Pen Vee K] 500 mg PO QID #40 tablet Is patient prescribed a controlled substance at d/c from ED?: No Referrals: Concha Lange MD [Primary Care Provider] - 1-2 days
[2020-05-09] MEDS ORDERED: LIDOCAINE VISCOUS 2% 15 ML CUP MUCOUS MEM STA (05:30)
== END 2020-05-09 05:39 | disposition home or self-care (01) ==
LOC: EC 05:07
DX: J02.0 Streptococcal pharyngitis (principal); F17.200 Nicotine dependence, unspecified, uncomplicated
CPT/HCPCS: 99282